=== PATIENT | male | born 1955 | race Caucasian/White ===

== ENCOUNTER 2018-01-10 07:57 | Outpatient (CLI) | payer BC, OTHER ==
[2018-01-10] MEDS ORDERED: ISOVUE-370 76%-LOCM 1 ML ONE (11:48)
--- NOTE | 2018-01-10 16:11 | CT ---
CT CHEST WITHOUT CONTRAST FOR CORONARY ARTERY CALCIUM SCORING CT CORONARY ANGIOGRAM WITH IV CONTRAST AND 3D POSTPROCESSING ON AN INDEPENDENT WORKSTATION: Date: 01/10/18 HISTORY: 62-year-old male with hypercholesterolemia. Patient is on Lipitor. FINDINGS: There is calcified plaque in the three major coronary arteries. CT coronary calcium score using the AJ-130 method is 1596. Left main: 18 RCA: 564 LAD: 789 LCX: 225 The left ventricular function measurements are as follows: Ejection fraction: 73% End-diastolic volume: 163 mL End-systolic volume: 44 mL Stroke volume: 119 mL/minute Cardiac output: 6.7 liters/minute There is calcified plaque in the left anterior descending artery with a focal stenosis of 80-90% in t he mid segment. Calcified plaque in the left circumflex artery demonstrates 50-60% stenosis in the pr oximal-mid portion. Calcified plaque in the right ICA results in about 30% stenosis in the proximal s egment. There are calcified lymph nodes in the hilar and mediastinal regions consistent with old granulomatou s disease. No pleural or pericardial effusions are seen. There are degenerative changes in the spine. The visualized lung watts are unremarkable. There is ectasia of the thoracic aorta without evidence of aneurysm. IMPRESSION: Triple vessel coronary artery disease with high grade stenosis (80-90%) involving the LAD. RECOMMENDATION: Consultation with a sewing machine repairer is recommended. POS: OFF
== END 2018-01-10 07:58 | disposition home or self-care (01) ==
LOC: BICCT 07:57
PROVIDERS: ATTEND Internal Medicine
DX: R01.1 Cardiac murmur, unspecified (principal); R07.9 Chest pain, unspecified; I25.10 Atherosclerotic heart disease of native coronary artery without angina pectoris; I08.3 Combined rheumatic disorders of mitral, aortic and tricuspid valves
CPT/HCPCS: 75574; 82565; 93306

== ENCOUNTER 2018-01-23 09:37 | Emergency (ER) | payer BC ==
[2018-01-23 10:19] LABS: #Eosinphils 0.2 thou/uL (0.0-0.7); #Lymphocytes 1.2 thou/uL (1.20-3.40); #Monocytes 0.5 thou/uL (0.11-0.59); #Neutrophils 3.8 thou/uL (1.40-6.50); %Basophils 0.2 % (0.0-1.0); %Eosinophils 3.4 % (0.0-10.0); %Lymphocytes 21.3 % (21.0-51.0); %Monocytes 8.3 % (0.0-10.0); %Neutrophils 66.9 % (42.0-75.0); Hemoglobin 16.9 g/dL (14.0-18.0); Mean Corpuscular HGB CONC 34.7 g/dL (32.0-36.0); Mean Corpuscular Hemoglobin 30.8 pg (27.0-31.0); Mean Corpuscular Volume 88.8 fL (78.0-98.0); Mean Platelet Volume 6.7 fL (7.4-10.4); Platelet Count 177 thou/uL (130-400); RBC Distribution Width 13.4 % (11.5-14.5); Red Blood Cell (RBC) Count 5.51 mill/uL (4.70-6.10); White Blood Cell (WBC) Count 5.6 thou/uL (4.8-10.8)
[2018-01-23 10:42] LABS: ALT (SGPT) 17 U/L (8-55); AST (SGOT) 16 U/L (5-34); Albumin 4.5 g/dL (3.4-4.8); Alkaline Phosphatase 73 U/L (40-150); Anion Gap 14 mmol/L (10-20); BUN (Urea Nitrogen) 14 mg/dL (8.4-25.7); Bilirubin, Total 1.1 mg/dL (0.2-1.2); Calc. Creatinine Clearance 0 mL/min (70-130); Calcium 10.9 mg/dL (7.8-10.44); Carbon Dioxide 24 mmol/L (23-31); Chloride 105 mmol/L (98-107); Estimated GFR-MDRD 61; Globulin 3.3 g/dL (2.4-3.5); Glucose 119 mg/dL (80-115); Potassium 4.1 mmol/L (3.5-5.1); Protein, Total 7.8 g/dL (5.8-8.1); Sodium 139 mmol/L (136-145)
--- NOTE | 2018-01-23 10:53 | RAD ---
AP VIEW CHEST: HISTORY: Chest pain. FINDINGS: AP chest is obtained on 01/23/2018. Comparison study is not available. AP view chest demonstrates EKG leads seen over the chest. The lungs are well aerated. No evidence o f active intrathoracic disease seen. No evidence of effusions, pneumonia, or pneumothorax seen. IMPRESSION: Unremarkable AP view chest. POS: [facility]
[2018-01-23 14:37] LABS: CKMB 0.9 ng/mL (0-6.6)
--- NOTE | 2018-01-27 13:17 | EKG ---
Test Reason : CP Blood Pressure : / mmHG Vent. Rate : 056 BPM Atrial Rate : 056 BPM P-R Int : 194 ms QRS Dur : 096 ms QT Int : 412 ms P-R-T Axes : 034 -19 004 degrees QTc Int : 397 ms Sinus bradycardia Otherwise normal ECG Confirmed by FLORINDA PAGE DO ([id number]), primer expeditor and drier TOMMY ALVARADO ([id number]) on 01/27/2018 1:17:26 PM Referred By: KAYLEE Confirmed By:FLORINDA PAGE DO
== END 2018-01-23 14:48 | disposition home or self-care (01) ==
LOC: ERS 09:37
DX: R07.89 Other chest pain (principal); E78.00 Pure hypercholesterolemia, unspecified; F41.9 Anxiety disorder, unspecified; F39 Unspecified mood [affective] disorder; Z79.82 Long term (current) use of aspirin; Z79.899 Other long term (current) drug therapy; Z86.718 Personal history of other venous thrombosis and embolism
CPT/HCPCS: 36415; 71045; 80053; 82553; 83880; 84484; 85025; 93005

== ENCOUNTER 2018-12-09 10:19 | Outpatient (CLI) | payer BC ==
--- NOTE | 2018-12-09 13:57 | NM ---
RADIONUCLIDE PARATHYROID SCAN WITH PLANAR AND SPECT-CT IMAGES: HISTORY: Hypercalcemia, unspecified RADIOPHARMACEUTICAL:24.2mCi technetium 99m-sestamibi injected intravenously FINDINGS: There is physiologic uptake in the salivary glands and thyroid gland. No abnormal areas of tracer localization are seen in the neck or chest. IMPRESSION: No scintigraphic evidence of parathyroid adenoma Further evaluation with CT scan using the parathyroid protocol would be helpful.
== END 2018-12-09 10:20 | disposition home or self-care (01) ==
LOC: NM 10:19
PROVIDERS: ATTEND Internal Medicine
DX: E83.52 Hypercalcemia (principal)
CPT/HCPCS: 78072; A9500

== ENCOUNTER 2018-12-21 10:42 | Outpatient (CLI) | payer BC ==
[~2018-12-21 10:42] MED LIST: Iopamidol 370 76% 100 ML VIAL ONE; Iopamidol 370 76% 50 ML VIAL FS ONE
--- NOTE | 2018-12-21 13:31 | CT ---
CT NECK SOFT TISSUES WITH AND WITHOUT CONTRAST: (Parathyroid protocol) DATE: 12/21/2018. HISTORY: A 63-year-old female with hyperparathyroidism and hypercalcemia. TECHNIQUE: Precontrast scan, 25 second postcontrast scan, and 65 second postcontrast scan, all performed from mi d T8 level inferiorly up to level of the odontoid process superiorly. Coronal and sagittal reconstructions. 120 mL of Isovue 370. FINDINGS: There is either heavy atherosclerotic calcification or stents along the LAD. Broadly abutting the posterior surface of the mid-lower pole of the right lobe of the thyroid gland, there is a solid nodule measuring approximately 0.9 x 1.2 x 1.4 cm at the C7 and upper T1 levels (axi al images 60 of series 2, 3, 5, and 6; sagittal images 83 of series 602 and 605; and coronal images 6 8 of series 601 and 604). It exhibits minimally heterogeneous moderate enhancement. Its precontrast attenuation is probably similar to that of adjacent thyroid parenchyma (although mild streak artifac t degrades the image somewhat), suggesting that this is a thyroid nodule rather than a parathyroid ad enoma. Slightly superior to that, abutting the posterior surface of the upper pole of the right lobe of the thyroid gland, there is another solid nodule measuring 1.3 x 1 x 0.8 cm, and contains coarse calcific ations (axial image 66, series 2, 3, 5, and 6; sagittal images 83, series 602 and 605; and coronal im ages 66, series 601 and 604) at the C6-7 level. It is uncertain whether not it has intrinsic iodine on the noncontrast CT. Its enhancement is also slightly heterogeneous with slightly low attenuation central component. Exophytically protruding inferiorly from the lower pole of the left lobe of the thyroid gland, there is an approximately 1.4 x 1.3 x 1.5 cm solid-appearing nodule with slight low attenuation central com ponent on the precontrast scan (axial images 55, series 2, 3, 5, and 6; sagittal images 99, series 60 2 and 605; coronal images 59, series 601 and 604). Moderate enhancement. IMPRESSION: Three nodules are identified, all somewhat poor to intermediate candidates for parathyroid adenomas. Two of them are posterior to the right lobe of the thyroid gland. The other one is off of the infer ior pole of the left lobe of the thyroid gland. They are slightly favored to represent thyroid nodul es, and somewhat less likely to represent parathyroid adenomas. POS: [facility]
== END 2018-12-21 10:43 | disposition home or self-care (01) ==
LOC: CT 10:42
PROVIDERS: ATTEND Internal Medicine
DX: E21.3 Hyperparathyroidism, unspecified (principal); D35.1 Benign neoplasm of parathyroid gland
CPT/HCPCS: 70492; 82565; Q9967